=== PATIENT | female | born 1990 | race Hispanic/Latino ===

== ENCOUNTER 2021-12-22 22:05 | Emergency (ER) | payer OTHER ==
[~2021-12-22] VITALS: Ht 162.6 cm; Wt 81.6 kg
[2021-12-22] MEDS ORDERED: CYCLOBENZAPRINE5 MG PO (22:43)
== END 2021-12-22 23:25 | disposition home or self-care (01) ==
LOC: FSED 22:10
DX: S10.83XA Contusion of other specified part of neck, initial encounter (principal); R51.9 Headache, unspecified; V43.52XA Car driver injured in collision with other type car in traffic accident, initial encounter; Y92.488 Other paved roadways as the place of occurrence of the external cause
CPT/HCPCS: 99282